=== PATIENT | female | born 1995 | race Caucasian/White ===

== ENCOUNTER 2021-11-14 17:15 | Emergency (ER) | payer BC, SELFPAY ==
[2021-11-14 17:17] VITALS: BP 139/84; PULSE 82; RESP 18; TEMP 36.4; O2SAT 100
[2021-11-14 18:21] VITALS: BP 133/98; PULSE 92; RESP 16; O2SAT 98
[2021-11-14 18:32] LABS: Appearance Urine Clear (Clear); Bilirubin Urine Negative (Negative); Color Urine Yellow (Yellow); Glucose Urine UA Negative (Negative); Ketones Urine Negative (Negative); Leukocyte Esterase Ur 1+ LEU/UL (Negative); Nitrate Urine Negative (Negative); Protein Urine Negative (Negative); Specific Grav Ur >= 1.030 (1.001-1.035); Urobilinogen Urine 0.2 mg/dL (<2.0)
--- NOTE | 2021-11-14 18:39 | ED.FEMALEGU ---
HPI - Female Genitourinary General Chief complaint: [employer] Stated complaint: 6-8 weeks, yeast infection? Time Seen by Provider: 11/14/21 17:23 History of Present Illness HPI Narrative: 26-year-old female presents the emergency room for evaluation of dysuria, white curd-like discharge from her vagina, and areas of erythema to her perineum and gluteal folds. Patient states that she is recently been on amoxicillin for strep throat and has noticed this painful erythematous and pruritic rash to her DIVYA area. Patient states that she has tried Monistat once since her onset of symptoms with no resolution. Related Data Allergies Allergy/AdvReac Type Severity Reaction Status Date / Time No Known Allergies Allergy Unverified 12/16/16 14:05 Review of Systems Review of Systems: CONSTITUTIONAL: Denies fever, chills, or sweats. EYES: Denies visual changes, redness, or discharge. ENT: Denies rhinorrhea, congestion, sore throat, or otalgia. CARDIOVASCULAR: Denies chest pain, palpitations, or edema. RESPIRATORY: Denies cough or dyspnea. GASTROINTESTINAL: Denies abdominal pain, nausea, vomiting, or diarrhea. GENITOURINARY: Reports rash and dysuria SKIN: Denies rash or itching. MUSCULOSKELETAL: Denies back pain, joint pain, or myalgia. NEUROLOGIC: Denies headache, numbness, dizziness, or weakness. PSYCHIATRIC: Denies anxiety or depression. Exam Narrative: GENERAL: Well-appearing, well-nourished, no physical limitations, and in no acute distress. HEAD: Normocephalic, atraumatic. EYES: Conjunctivae normal, PERRLA and EOMI. CHEST: Clear to auscultation. No respiratory distress. No wheezes rales or rhonchi. No tenderness. HEART: Regular rate and rhythm. No murmur heard. Normal peripheral pulses. ABDOMEN: Soft, nontender, nondistended, normal active bowel sounds. : Erythematous scaling rash noted between gluteal folds and perineal area BACK: No CVA tenderness EXTREMITIES: Normal range of motion. No edema. No clubbing or cyanosis SKIN: Warm, dry, no rash. No noted wounds NEURO: No focal deficits. Alert and oriented x3. MAEW. CN's II-XI intact bilaterally, normal gait PSYCH: Cooperative. Normal mood and affect. Course Vital Signs Vital signs: Vital Signs Temperature 36.4 C L 11/14/21 17:17 Pulse Rate 82 11/14/21 17:17 Respiratory Rate 18 11/14/21 17:17 Blood Pressure 139/84 11/14/21 17:17 Pulse Oximetry 100 11/14/21 17:17 Oxygen Delivery Room Air 11/14/21 17:17 Temperature 36.4 C L 11/14/21 17:17 Pulse Rate 92 11/14/21 18:21 Respiratory Rate 16 11/14/21 18:21 Blood Pressure 133/98 H 11/14/21 18:21 Pulse Oximetry 98 11/14/21 18:21 Oxygen Delivery Room Air 11/14/21 17:17 MDM - Female Genitourinary Lab Data Labs: Lab Results 11/14/21 Range/Units 18:24 Urine Color Yellow (Yellow) Urine Appearance Clear (Clear) Urine pH 6.0 (5.0-9.0) Ur Specific [place] >= 1.030 (1.001-1.035) Urine Protein Negative (Negative) mg/dL Urine Glucose (UA) Negative (Negative) mg/dL Urine Ketones Negative (Negative) mg/dL Ur Blood (Man) Trace-intact (Negative) Urine Nitrate Negative (Negative) Urine Bilirubin Negative (Negative) Urine Urobilinogen 0.2 (<2.0) mg/dL Leukocyte Esterase Rfl 1+ H (Negative) JUAN MANUEL/UL Urine RBC 6-10 H (0-2) /hpf Urine WBC 16-20 H /hpf Ur Squamous Epith Cells Occasional (Few) /hpf Urine Bacteria Trace /hpf Urine Mucus Few H /lpf Discharge Plan Discharge Clinical Impression: Candidiasis of female genitalia, UTI (urinary tract infection) Patient Disposition: Home, Self-Care Condition: Stable Instructions: Antibiotic Form, Yeast Infection (ED) Prescriptions: New clotrimazole [Antifungal (clotrimazole)] 1 % cream 1 applic topical BID 7 Days Qty: 30 0RF nitrofurantoin monohyd/m-cryst [Macrobid] 100 mg capsule 100 mg PO Q12H 5 Days Qty: 10 0RF Rx Instructions: must administer with a meal/f
[2021-11-14 18:41] LABS: Bacteria Urine Trace /hpf; Mucus Urine Few /lpf; Squamous Epithelial Cell Urine Occasional /hpf (Few); WBC Urine 16-20 /hpf
[2021-11-14 18:42] LABS: Add Urine Microscopic? YES; Blood Urine Trace-Intact (Negative)
[2021-11-14 19:28] VITALS: BP 134/77; PULSE 80; RESP 16; O2SAT 99
== END 2021-11-14 19:29 | disposition home or self-care (01) ==
PROVIDERS: Emergency Provider Nurse Practitioner Family; PCP Advanced Practice Midwife
DX: N39.0 Urinary tract infection, site not specified (principal); B37.3 Candidiasis of vulva and vagina
CPT/HCPCS: 81001; 87086; 99283

== ENCOUNTER 2021-11-15 12:05 | Outpatient (CLI) | payer BC, SELFPAY | END 2021-11-15 12:06 | disposition home or self-care (01) | LOC: ANHLAB 12:10 | PROVIDERS: PCP Advanced Practice Midwife; Visit Provider Advanced Practice Midwife | DX: O20.0 Threatened abortion (principal); Z3A.00 Weeks of gestation of pregnancy not specified | CPT/HCPCS: 36415; 84702 ==